=== PATIENT | female | born 1970 | race Caucasian/White ===

== ENCOUNTER 2019-03-15 15:19 | Inpatient (IN) ==
[2019-03-15 15:55] LABS: Basophils # 0.2 10*3/uL (0.0-0.2); Basophils % 0.9 % (0.0-0.8); Eosinophils # 0.4 10*3/uL (0.0-0.87); Eosinophils % 1.9 % (0.00-10.9); Hematocrit 43.8 VOL% (35.7-47.0); Hemoglobin 13.9 GM/DL (12.0-16.0); Immature Granulocytes % 0.6 %; Immature Granulocytes Absolute 0.12 #; Lymphocytes # 2.6 10*3/uL (1.4-4.0); Lymphocytes % 13.9 % (21.3-54.2); Mean Corpuscular HGB Conc 31.7 GM/DL (32-36); Mean Corpuscular Volume 81.7 FL (87-102); Monocytes % 5.6 % (1.7-12.7); Neutrophils % 77.1 % (38.7-73.9); Platelet Count 385 T/CUMM (130-400); Red Blood Count 5.36 MC/CUMM (3.8-5.5); Red Cell Distribution Width 19.5 % (9.3-17.3)
[2019-03-15 16:22] LABS: Bilirubin,Total 0.4 MG/DL (0.2-1.0); Calcium 8.5 MG/DL (8.5-10.1); Osmolality,Calculated 264.2 MOS/KG (273-304); Total Protein 7.3 G/DL (6.4-8.3)
[2019-03-15] MEDS ORDERED: SODIUM CHLORIDE 0.9% 1,000 ML IV STA (16:45)
[2019-03-15] MEDS ORDERED: ONDANSETRON 4 MG/2 ML VIAL IV STA (16:45)
[2019-03-15 17:36] LABS: Bilirubin,Total 0.4 MG/DL (0.2-1.0); Calcium 8.1 MG/DL (8.5-10.1); Osmolality,Calculated 263.2 MOS/KG (273-304); Total Protein 7.4 G/DL (6.4-8.3)
[2019-03-15 19:27] LABS: Apearance,Urine CLEAR (Clear); Bacteria,Urine Few /HPF (Few); Bilirubin,Urine Negative (Negative); Blood, Urine Small mg/dL (Negative); Glucose,Urine (UA) Negative (Negative); Ketones,Urine Negative (Negative); Mucus,Urine Occasional /LPF (Occasional); Nitrite,Urine Negative (Negative); Protein,Urine Negative; RBC,Urine <1 /HPF (0-4); Squamous Epithelial Cell,Urine Occasional /HPF (0-10); Urine Color Straw (Yellow); Urine Specific Gravity 1.005 (1.001-1.035); Urine Urobilinogen < 2.0 EU/DL (0.2-1.0); WBC,Urine <1 /HPF (0-6)
[2019-03-15] MEDS ORDERED: ONDANSETRON 4 MG/2 ML VIAL IV PRN (19:28)
[2019-03-15] MEDS: SODIUM CHLORIDE 0.9% 1,000 ML IV SCH (22:01)
[2019-03-15] MEDS: SULFAMETHOX/TRIMETHOPRIM 800-160 MG TABLET PO SCH (22:01)
[2019-03-15] MEDS: CYCLOBENZAPRINE 10 MG TABLET PO SCH (22:01)
[2019-03-15] MEDS: HEPARIN 5,000 UNIT/1 ML VIAL SUBCUT SCH (22:01)
[2019-03-15] MEDS: PREGABALIN 50 MG CAPSULE PO SCH (22:01)
[2019-03-16 05:01] LABS: Basophils # 0.1 10*3/uL (0.0-0.2); Basophils % 1.1 % (0.0-0.8); Eosinophils # 0.8 10*3/uL (0.0-0.87); Hematocrit 36.4 VOL% (35.7-47.0); Hemoglobin 11.6 GM/DL (12.0-16.0); Immature Granulocytes % 0.2 %; Immature Granulocytes Absolute 0.02 #; Lymphocytes # 3.2 10*3/uL (1.4-4.0); Lymphocytes % 29.2 % (21.3-54.2); Mean Corpuscular HGB Conc 31.9 GM/DL (32-36); Mean Corpuscular Volume 80.9 FL (87-102); Mean Platelet Volume 10.4 FL (9.6-12.0); Monocytes % 7.5 % (1.7-12.7); Platelet Count 312 T/CUMM (130-400); Red Cell Distribution Width 18.6 % (9.3-17.3); White Blood Count 10.9 T/CUMM (4-12)
[2019-03-16 05:29] LABS: Calcium 7.3 MG/DL (8.5-10.1)
[2019-03-16] MEDS: LEVOTHYROXINE 112 MCG TABLET PO SCH (05:41)
[2019-03-16] MEDS: SODIUM CHLORIDE 0.9% 1,000 ML IV SCH ×3 (05:41→21:21)
[2019-03-16] MEDS: HEPARIN 5,000 UNIT/1 ML VIAL SUBCUT SCH ×3 (05:41→21:23)
[2019-03-16] MEDS: DULoxetine 30 MG CAPSULE PO SCH (10:09)
[2019-03-16] MEDS: CYANOCOBALAMIN 500 MCG TABLET PO SCH (10:10)
[2019-03-16] MEDS: PREGABALIN 50 MG CAPSULE PO SCH ×3 (10:10→21:21)
[2019-03-16] MEDS: CALCIUM (CARBONATE)/VITAMIN D 500 MG-200 UNIT TABLET PO SCH ×2 (10:10→21:20)
[2019-03-16] MEDS: SULFAMETHOX/TRIMETHOPRIM 800-160 MG TABLET PO SCH ×2 (10:10→21:20)
[2019-03-16] MEDS: MAGNESIUM GLUCONATE 500 MG TABLET PO SCH (10:10)
[2019-03-16] MEDS: CYCLOBENZAPRINE 10 MG TABLET PO SCH ×2 (10:11→21:20)
[2019-03-16] MEDS: ESTRADIOL 1 MG TABLET PO SCH (10:11)
[2019-03-16] MEDS: PANTOPRAZOLE 40 MG TABLET PO SCH (10:11)
[2019-03-16] MEDS: POTASSIUM CHLORIDE 20 MEQ TABLET PO PRN ×3 (10:45→17:15)
[2019-03-16 11:12] LABS: Barbiturates Screen,Urine Negative (Negative); Benzodiazepines Screen,Urine Negative (Negative); Cannabinoid Screen,Urine Negative (Negative); Opiate Screen,Urine Positive (Negative); Phencyclidine Screen,Urine Negative (Negative)
[2019-03-17 04:34] LABS: Basophils # 0.1 10*3/uL (0.0-0.2); Basophils % 1.1 % (0.0-0.8); Eosinophils # 0.5 10*3/uL (0.0-0.87); Eosinophils % 7.1 % (0.00-10.9); Hematocrit 32.3 VOL% (35.7-47.0); Hemoglobin 10.2 GM/DL (12.0-16.0); Immature Granulocytes % 0.1 %; Immature Granulocytes Absolute 0.01 #; Lymphocytes # 2.7 10*3/uL (1.4-4.0); Lymphocytes % 36.7 % (21.3-54.2); Mean Corpuscular HGB Conc 31.6 GM/DL (32-36); Mean Corpuscular Volume 81.4 FL (87-102); Mean Platelet Volume 10.3 FL (9.6-12.0); Platelet Count 268 T/CUMM (130-400); Red Blood Count 3.97 MC/CUMM (3.8-5.5); Red Cell Distribution Width 18.8 % (9.3-17.3); White Blood Count 7.5 T/CUMM (4-12)
[2019-03-17] MEDS ORDERED: SODIUM CHLORIDE 0.9% 500 ML IV ONE (05:11)
[2019-03-17 05:14] LABS: Albumin 2.1 G/DL (3.4-5.0); Bilirubin,Total 1.2 MG/DL (0.2-1.0); Osmolality,Calculated 277.8 MOS/KG (273-304)
[2019-03-17] MEDS: SODIUM CHLORIDE 0.9% 1,000 ML IV SCH ×3 (05:36→22:55)
[2019-03-17] MEDS: LEVOTHYROXINE 112 MCG TABLET PO SCH (05:39)
[2019-03-17] MEDS: HEPARIN 5,000 UNIT/1 ML VIAL SUBCUT SCH ×3 (06:37→21:44)
[2019-03-17] MEDS: DULoxetine 30 MG CAPSULE PO SCH (09:54)
[2019-03-17] MEDS: MAGNESIUM GLUCONATE 500 MG TABLET PO SCH (09:54)
[2019-03-17] MEDS: PREGABALIN 50 MG CAPSULE PO SCH ×3 (09:55→21:42)
[2019-03-17] MEDS: SULFAMETHOX/TRIMETHOPRIM 800-160 MG TABLET PO SCH ×2 (09:55→22:56)
[2019-03-17] MEDS: CYANOCOBALAMIN 500 MCG TABLET PO SCH (09:55)
[2019-03-17] MEDS: POTASSIUM CHLORIDE 20 MEQ TABLET PO SCH (09:55)
[2019-03-17] MEDS: PANTOPRAZOLE 40 MG TABLET PO SCH (09:55)
[2019-03-17] MEDS: CALCIUM (CARBONATE)/VITAMIN D 500 MG-200 UNIT TABLET PO SCH ×2 (09:55→21:42)
[2019-03-17] MEDS: ESTRADIOL 1 MG TABLET PO SCH (09:56)
[2019-03-17] MEDS: dimenhyDRINATE 50 MG TABLET PO SCH (10:22)
[2019-03-17] MEDS: MOMETASONE 50 MCG NASAL SPRAY 17 GM BOTTLE BOTH NARES SCH (10:22)
[2019-03-17] MEDS: CYCLOBENZAPRINE 10 MG TABLET PO SCH ×2 (10:22→22:12)
[2019-03-17] MEDS: DIAZEPAM 5 MG TABLET PO PRN (22:56)
[2019-03-18 04:42] LABS: Basophils # 0.1 10*3/uL (0.0-0.2); Basophils % 1.1 % (0.0-0.8); Eosinophils # 0.7 10*3/uL (0.0-0.87); Eosinophils % 7.6 % (0.00-10.9); Hematocrit 30.7 VOL% (35.7-47.0); Hemoglobin 9.7 GM/DL (12.0-16.0); Immature Granulocytes % 0.1 %; Immature Granulocytes Absolute 0.01 #; Lymphocytes # 3.2 10*3/uL (1.4-4.0); Lymphocytes % 37.6 % (21.3-54.2); Mean Corpuscular HGB Conc 31.6 GM/DL (32-36); Mean Corpuscular Volume 82.1 FL (87-102); Mean Platelet Volume 10.4 FL (9.6-12.0); Monocytes % 7.5 % (1.7-12.7); Neutrophils % 46.1 % (38.7-73.9); Platelet Count 280 T/CUMM (130-400); Red Blood Count 3.74 MC/CUMM (3.8-5.5); Red Cell Distribution Width 18.8 % (9.3-17.3); White Blood Count 8.5 T/CUMM (4-12)
[2019-03-18 05:09] LABS: Bilirubin,Total 0.4 MG/DL (0.2-1.0); Calcium 7.4 MG/DL (8.5-10.1); Osmolality,Calculated 284.3 MOS/KG (273-304); Total Protein 4.8 G/DL (6.4-8.3)
[2019-03-18] MEDS: HEPARIN 5,000 UNIT/1 ML VIAL SUBCUT SCH ×3 (06:58→21:31)
[2019-03-18] MEDS: SODIUM CHLORIDE 0.9% 1,000 ML IV SCH ×2 (06:58→21:28)
[2019-03-18] MEDS: LEVOTHYROXINE 112 MCG TABLET PO SCH (06:59)
[2019-03-18] MEDS: POTASSIUM CHLORIDE 20 MEQ TABLET PO SCH (08:44)
[2019-03-18] MEDS: CALCIUM (CARBONATE)/VITAMIN D 500 MG-200 UNIT TABLET PO SCH ×2 (08:44→21:31)
[2019-03-18] MEDS: MAGNESIUM GLUCONATE 500 MG TABLET PO SCH (08:44)
[2019-03-18] MEDS: PREGABALIN 50 MG CAPSULE PO SCH ×3 (08:44→21:31)
[2019-03-18] MEDS: DULoxetine 30 MG CAPSULE PO SCH (08:44)
[2019-03-18] MEDS: CYANOCOBALAMIN 500 MCG TABLET PO SCH (08:45)
[2019-03-18] MEDS: PANTOPRAZOLE 40 MG TABLET PO SCH (08:46)
[2019-03-18] MEDS: CYCLOBENZAPRINE 10 MG TABLET PO SCH ×2 (08:46→21:31)
[2019-03-18] MEDS ORDERED: MAGNESIUM SULF RIDER 2 GM in PREMIX 1 EACH IV ONE (08:59)
[2019-03-18] MEDS ORDERED: ERGOCALCIFEROL 50,000 UNIT CAPSULE PO SCH (09:00)
[2019-03-18] MEDS: ESTRADIOL 1 MG TABLET PO SCH (09:06)
[2019-03-18] MEDS: POTASSIUM CHLORIDE 20 MEQ TABLET PO PRN ×3 (09:07→14:01)
[2019-03-18] MEDS: dimenhyDRINATE 50 MG TABLET PO SCH (09:07)
[2019-03-18] MEDS: MOMETASONE 50 MCG NASAL SPRAY 17 GM BOTTLE BOTH NARES SCH (09:07)
[2019-03-18] MEDS: [UNRECOGNIZED DRUG - OTHER] PO SCH (21:30)
[2019-03-19] MEDS: DIAZEPAM 5 MG TABLET PO PRN (01:51)
[2019-03-19] MEDS: HEPARIN 5,000 UNIT/1 ML VIAL SUBCUT SCH ×2 (06:48→14:20)
[2019-03-19] MEDS: LEVOTHYROXINE 112 MCG TABLET PO SCH (07:04)
[2019-03-19] MEDS: [UNRECOGNIZED DRUG - OTHER] PO SCH (08:47)
[2019-03-19] MEDS: dimenhyDRINATE 50 MG TABLET PO SCH (08:47)
[2019-03-19] MEDS: ESTRADIOL 1 MG TABLET PO SCH (08:48)
[2019-03-19] MEDS: PREGABALIN 50 MG CAPSULE PO SCH (08:48)
[2019-03-19] MEDS: POTASSIUM CHLORIDE 20 MEQ TABLET PO SCH (08:48)
[2019-03-19] MEDS: DULoxetine 30 MG CAPSULE PO SCH (08:48)
[2019-03-19] MEDS: CYCLOBENZAPRINE 10 MG TABLET PO SCH (08:48)
[2019-03-19] MEDS: MAGNESIUM GLUCONATE 500 MG TABLET PO SCH (08:48)
[2019-03-19] MEDS: PANTOPRAZOLE 40 MG TABLET PO SCH (08:48)
[2019-03-19] MEDS: CYANOCOBALAMIN 500 MCG TABLET PO SCH (08:48)
[2019-03-19] MEDS: CALCIUM (CARBONATE)/VITAMIN D 500 MG-200 UNIT TABLET PO SCH (08:48)
[2019-03-19] MEDS: MOMETASONE 50 MCG NASAL SPRAY 17 GM BOTTLE BOTH NARES SCH (09:01)
[2019-03-19 12:27] VITALS: BP 111/66
[2019-03-19] MEDS: SODIUM CHLORIDE 0.9% 1,000 ML IV SCH (12:53)
== END 2019-03-19 14:30 | disposition home or self-care (01) | DRG 683 ==
LOC: N.ED 15:19 → N.EDINP 15:19 → SUATTDRO 19:28 → N.4E 20:13
PROVIDERS: ADMIT Internal Medicine; ATTEND Internal Medicine

== ENCOUNTER 2019-04-06 20:47 | Inpatient (IN) ==
[2019-04-06] MEDS ORDERED: LACTATED RINGERS 1,000 ML IV ONE (22:13)
[2019-04-06 22:53] LABS: Basophils # 0.1 10*3/uL (0.0-0.2); Basophils % 0.4 % (0.0-0.8); Hematocrit 36.9 VOL% (35.7-47.0); Immature Granulocytes % 11.5 %; Immature Granulocytes Absolute 3.82 #; Lymphocytes # 0.7 10*3/uL (1.4-4.0); Lymphocytes % 2.1 % (21.3-54.2); Mean Corpuscular HGB Conc 32.5 GM/DL (32-36); Mean Corpuscular Volume 80.7 FL (87-102); Mean Platelet Volume 11.5 FL (9.6-12.0); Platelet Count 383 T/CUMM (130-400); Red Blood Count 4.57 MC/CUMM (3.8-5.5); Red Cell Distribution Width 18.8 % (9.3-17.3); White Blood Count 33.2 T/CUMM (4-12)
[2019-04-06] MEDS ORDERED: LACTATED RINGERS 2,000 ML IV ONE (23:09)
[2019-04-06 23:15] LABS: Band Neutrophils 16 % (0-10); Lymphocytes 5 % (20-55); Segmented Neutrophils 78 % (50-85); Total Cells Counted 100
[2019-04-06] MEDS ORDERED: LEVOFLOXACIN INJ 500 MG in PREMIX 1 EACH IV STA (23:15)
[2019-04-06 23:17] LABS: Anisocytosis 1+; Platelet Estimate Adequate; Poikilocytosis 1+; Polychromasia Slight
[2019-04-07 00:54] LABS: Apearance,Urine CLOUDY (Clear); Bacteria,Urine Moderate /HPF (Few); Bilirubin,Urine Negative (Negative); Blood, Urine Small mg/dL (Negative); Glucose,Urine (UA) Negative (Negative); Ketones,Urine Negative (Negative); Nitrite,Urine Negative (Negative); Protein,Urine Negative; RBC,Urine 1 /HPF (0-4); Squamous Epithelial Cell,Urine Occasional /HPF (0-10); Urine Color Yellow (Yellow); Urine Specific Gravity 1.009 (1.001-1.035); Urine Urobilinogen < 2.0 EU/DL (0.2-1.0); WBC,Urine 2 /HPF (0-6)
[2019-04-07 00:56] LABS: Blood Urea Nitrogen 45 MG/DL (7-18); Calcium 7.1 MG/DL (8.5-10.1); Estimated Glom Filtration Rate 13 ML/MIN; Glucose 90 MG/DL (74-106); Osmolality,Calculated 284.8 MOS/KG (273-304)
[2019-04-07] MEDS ORDERED: POTASSIUM CHLORIDE 20 MEQ TABLET PO STA (00:59)
[2019-04-07] MEDS ORDERED: POTASSIUM CHLORIDE 20 MEQ TABLET PO ONE (01:04)
[2019-04-07] MEDS ORDERED: VANCOMYCIN (NICU) 1,000 MG in SYRINGE 1 EACH IV SCH (01:30)
[2019-04-07] MEDS ORDERED: VANCOMYCIN INJ 1,000 MG in SODIUM CHLORIDE 0.9% 250 ML IV STA (01:54)
[2019-04-07] MEDS ORDERED: VANCOMYCIN INJ 1,000 MG in SODIUM CHLORIDE 0.9% 250 ML IV PRN (02:29)
[2019-04-07] MEDS ORDERED: ONDANSETRON 4 MG/2 ML VIAL IV PRN (02:55)
[2019-04-07] MEDS ORDERED: SODIUM CHLORIDE 0.9% 1,000 ML IV SCH (03:00)
[2019-04-07] MEDS ORDERED: SODIUM CHLORIDE 0.9% IV ONE (03:30)
[2019-04-07] MEDS ORDERED: AZTREONAM 1,000 MG in SYRINGE 1 EACH IV ONE ×2 (03:30)
[2019-04-07] MEDS ORDERED: MAGNESIUM SULF IV ONE (03:30)
[2019-04-07] MEDS ORDERED: AZTREONAM 1,000 MG in SYRINGE 1 EACH IV SCH (03:30)
[2019-04-07] MEDS ORDERED: POTASSIUM CHLORIDE IV ONE (03:30)
[2019-04-07] MEDS ORDERED: INFLUENZA VIRUS VACCINE 0.5 ML SYRINGE IM ONE (04:46)
[2019-04-07 04:54] LABS: Basophils # 0.1 10*3/uL (0.0-0.2); Basophils % 0.4 % (0.0-0.8); Hematocrit 34.5 VOL% (35.7-47.0); Hemoglobin 11.3 GM/DL (12.0-16.0); Immature Granulocytes % 8.2 %; Immature Granulocytes Absolute 2.56 #; Lymphocytes # 1.3 10*3/uL (1.4-4.0); Mean Corpuscular HGB Conc 32.8 GM/DL (32-36); Mean Corpuscular Volume 79.3 FL (87-102); Mean Platelet Volume 11.4 FL (9.6-12.0); Monocytes % 2.5 % (1.7-12.7); Neutrophils % 84.9 % (38.7-73.9); Platelet Count 312 T/CUMM (130-400); Red Blood Count 4.35 MC/CUMM (3.8-5.5); Red Cell Distribution Width 18.6 % (9.3-17.3); White Blood Count 31.1 T/CUMM (4-12)
[2019-04-07 05:15] LABS: Bilirubin,Total 1.1 MG/DL (0.2-1.0); Calcium 7.1 MG/DL (8.5-10.1); Osmolality,Calculated 282.7 MOS/KG (273-304); Total Protein 5.5 G/DL (6.4-8.3)
[2019-04-07 05:16] LABS: Band Neutrophils 5 % (0-10); Hypochromasia 1+; Lymphocytes 1 % (20-55); Segmented Neutrophils 89 % (50-85); Total Cells Counted 100
[2019-04-07 05:17] LABS: Microcytosis 1+; Platelet Estimate Normal; Polychromasia Slight
[2019-04-07 05:30] LABS: Troponin I < 0.015 NG/ML (0.00-0.045)
[2019-04-07] MEDS: LEVOTHYROXINE 112 MCG TABLET PO SCH (06:30)
[2019-04-07] MEDS: CYANOCOBALAMIN 500 MCG TABLET PO SCH (08:52)
[2019-04-07] MEDS: ESTRADIOL 1 MG TABLET PO SCH (08:52)
[2019-04-07] MEDS: [UNRECOGNIZED DRUG - OTHER] PO SCH ×2 (08:52→21:28)
[2019-04-07 09:49] LABS: Troponin I 0.029 NG/ML (0.00-0.045)
[2019-04-07] MEDS: AZTREONAM 500 MG in SYRINGE 1 EACH IV SCH ×3 (12:20→21:43)
[2019-04-07] MEDS ORDERED: DIAZEPAM 5 MG TABLET PO PRN (13:51)
[2019-04-07] MEDS ORDERED: ERGOCALCIFEROL 50,000 UNIT CAPSULE PO SCH (14:00)
[2019-04-07] MEDS ORDERED: MAGNESIUM SULF RIDER 4 GM in PREMIX 1 EACH IV PRN (14:03)
[2019-04-07] MEDS ORDERED: MAGNESIUM SULF RIDER 2 GM in PREMIX 1 EACH IV PRN (14:03)
[2019-04-07 15:31] LABS: Troponin I 0.123 NG/ML (0.00-0.045)
[2019-04-07] MEDS: FAMOTIDINE 20 MG TABLET PO SCH (16:46)
[2019-04-07] MEDS ORDERED: NYSTATIN 500,000 UNIT/5 ML UDCUP PO SCH ×2 (17:00)
[2019-04-07] MEDS: MAGIC MOUTHWASH PO SCH ×2 (18:07→21:52)
[2019-04-07] MEDS ORDERED: BENZONATATE 100 MG CAPSULE PO PRN (20:26)
[2019-04-07] MEDS: CALCIUM (CARBONATE)/VITAMIN D 500 MG-200 UNIT TABLET PO SCH (21:30)
[2019-04-07] MEDS: NYSTATIN 500,000 UNIT/5 ML UDCUP PO SCH (21:31)
[2019-04-07] MEDS: CYCLOBENZAPRINE 10 MG TABLET PO SCH (21:31)
[2019-04-08] MEDS: ALBUTEROL/IPRATROPIUM 3 ML NEB RESP TX PRN ×4 (04:00→23:33)
[2019-04-08] MEDS: AZTREONAM 500 MG in SYRINGE 1 EACH IV SCH ×4 (04:33→21:11)
[2019-04-08 05:29] LABS: Basophils # 0.1 10*3/uL (0.0-0.2); Basophils % 0.2 % (0.0-0.8); Eosinophils # 0.1 10*3/uL (0.0-0.87); Eosinophils % 0.4 % (0.00-10.9); Hematocrit 38.1 VOL% (35.7-47.0); Hemoglobin 12.6 GM/DL (12.0-16.0); Immature Granulocytes % 6.2 %; Immature Granulocytes Absolute 1.65 #; Lymphocytes # 1.7 10*3/uL (1.4-4.0); Lymphocytes % 6.4 % (21.3-54.2); Mean Corpuscular HGB Conc 33.1 GM/DL (32-36); Mean Corpuscular Volume 79.2 FL (87-102); Mean Platelet Volume 11.4 FL (9.6-12.0); Monocytes % 3.2 % (1.7-12.7); NRBC # 0.03 10*3/uL; Neutrophils % 83.6 % (38.7-73.9); Platelet Count 315 T/CUMM (130-400); Red Blood Count 4.81 MC/CUMM (3.8-5.5); Red Cell Distribution Width 19.1 % (9.3-17.3); White Blood Count 26.5 T/CUMM (4-12)
[2019-04-08 06:13] LABS: Band Neutrophils 7 % (0-10); Eosinophils 2 % (0-10); Lymphocytes 4 % (20-55); Segmented Neutrophils 84 % (50-85); Total Cells Counted 100
[2019-04-08 06:14] LABS: Anisocytosis 1+; Platelet Estimate Adequate; Poikilocytosis 1+
[2019-04-08 06:27] LABS: Albumin 1.6 G/DL (3.4-5.0); Bilirubin,Total 0.5 MG/DL (0.2-1.0); Total Protein 5.9 G/DL (6.4-8.3)
[2019-04-08] MEDS: LEVOTHYROXINE 112 MCG TABLET PO SCH (06:58)
[2019-04-08] MEDS: [UNRECOGNIZED DRUG - OTHER] PO SCH ×2 (08:36→21:14)
[2019-04-08] MEDS: NYSTATIN 500,000 UNIT/5 ML UDCUP PO SCH ×4 (08:37→21:12)
[2019-04-08] MEDS: CALCIUM (CARBONATE)/VITAMIN D 500 MG-200 UNIT TABLET PO SCH ×2 (08:37→21:12)
[2019-04-08] MEDS: MAGNESIUM GLUCONATE 500 MG TABLET PO SCH (08:37)
[2019-04-08] MEDS: DULoxetine 30 MG CAPSULE PO SCH (08:37)
[2019-04-08] MEDS: CYCLOBENZAPRINE 10 MG TABLET PO SCH ×2 (08:38→21:13)
[2019-04-08] MEDS: ESTRADIOL 1 MG TABLET PO SCH (08:38)
[2019-04-08] MEDS: FAMOTIDINE 20 MG TABLET PO SCH (08:38)
[2019-04-08] MEDS: dimenhyDRINATE 50 MG TABLET PO SCH (08:38)
[2019-04-08] MEDS: CYANOCOBALAMIN 500 MCG TABLET PO SCH (08:38)
[2019-04-08] MEDS: MOMETASONE 50 MCG NASAL SPRAY 17 GM BOTTLE BOTH NARES SCH (08:39)
[2019-04-08] MEDS: MAGIC MOUTHWASH PO SCH ×4 (08:41→21:12)
[2019-04-08] MEDS ORDERED: VANCOMYCIN INJ 1,000 MG in SODIUM CHLORIDE 0.9% 250 ML IV ONE (14:30)
[2019-04-09] MEDS: LEVOFLOXACIN INJ 250 MG in PREMIX 1 EACH IV SCH (01:33)
[2019-04-09] MEDS: AZTREONAM 500 MG in SYRINGE 1 EACH IV SCH ×4 (04:30→20:50)
[2019-04-09 05:39] LABS: Basophils # 0.1 10*3/uL (0.0-0.2); Basophils % 0.5 % (0.0-0.8); Eosinophils # 0.1 10*3/uL (0.0-0.87); Eosinophils % 0.4 % (0.00-10.9); Hematocrit 28.4 VOL% (35.7-47.0); Hemoglobin 9.5 GM/DL (12.0-16.0); Immature Granulocytes Absolute 0.23 #; Lymphocytes # 1.6 10*3/uL (1.4-4.0); Lymphocytes % 7.1 % (21.3-54.2); Mean Corpuscular HGB Conc 33.5 GM/DL (32-36); Mean Corpuscular Volume 77.4 FL (87-102); Mean Platelet Volume 11.3 FL (9.6-12.0); Monocytes % 5.5 % (1.7-12.7); NRBC # 0.02 10*3/uL; Neutrophils % 85.5 % (38.7-73.9); Platelet Count 274 T/CUMM (130-400); Red Blood Count 3.67 MC/CUMM (3.8-5.5); Red Cell Distribution Width 18.1 % (9.3-17.3); White Blood Count 22.4 T/CUMM (4-12)
[2019-04-09 06:06] LABS: Hypochromasia 1+; Lymphocytes 7 % (20-55); Microcytosis 1+; Segmented Neutrophils 89 % (50-85); Total Cells Counted 100
[2019-04-09 06:07] LABS: Anisocytosis 1+; Burr Cells Slight; Target Cells Slight
[2019-04-09 06:08] LABS: Albumin 1.6 G/DL (3.4-5.0); Bilirubin,Total 1.1 MG/DL (0.2-1.0); Calcium 8.1 MG/DL (8.5-10.1); Osmolality,Calculated 288.5 MOS/KG (273-304); Total Protein 5.1 G/DL (6.4-8.3)
[2019-04-09] MEDS: LEVOTHYROXINE 112 MCG TABLET PO SCH (06:16)
[2019-04-09] MEDS: CYANOCOBALAMIN 500 MCG TABLET PO SCH (09:48)
[2019-04-09] MEDS: CYCLOBENZAPRINE 10 MG TABLET PO SCH ×2 (09:48→20:21)
[2019-04-09] MEDS: FAMOTIDINE 20 MG TABLET PO SCH (09:48)
[2019-04-09] MEDS: CALCIUM (CARBONATE)/VITAMIN D 500 MG-200 UNIT TABLET PO SCH ×2 (09:48→20:21)
[2019-04-09] MEDS: dimenhyDRINATE 50 MG TABLET PO SCH (09:49)
[2019-04-09] MEDS: MAGNESIUM GLUCONATE 500 MG TABLET PO SCH (09:49)
[2019-04-09] MEDS: DULoxetine 30 MG CAPSULE PO SCH (09:49)
[2019-04-09] MEDS: MOMETASONE 50 MCG NASAL SPRAY 17 GM BOTTLE BOTH NARES SCH (09:49)
[2019-04-09] MEDS: ESTRADIOL 1 MG TABLET PO SCH (09:49)
[2019-04-09] MEDS: NYSTATIN 500,000 UNIT/5 ML UDCUP PO SCH ×4 (09:51→20:22)
[2019-04-09] MEDS: MAGIC MOUTHWASH PO SCH ×4 (09:51→20:31)
[2019-04-09] MEDS: [UNRECOGNIZED DRUG - OTHER] PO SCH ×2 (09:52→20:22)
[2019-04-09] MEDS: POTASSIUM CHLORIDE 20 MEQ TABLET PO PRN (20:21)
[2019-04-10] MEDS: AZTREONAM 500 MG in SYRINGE 1 EACH IV SCH ×4 (04:37→21:10)
[2019-04-10 05:57] LABS: Basophils # 0.1 10*3/uL (0.0-0.2); Basophils % 0.6 % (0.0-0.8); Eosinophils # 0.2 10*3/uL (0.0-0.87); Eosinophils % 1.2 % (0.00-10.9); Hematocrit 34.3 VOL% (35.7-47.0); Hemoglobin 10.9 GM/DL (12.0-16.0); Immature Granulocytes % 1.1 %; Immature Granulocytes Absolute 0.21 #; Lymphocytes # 1.4 10*3/uL (1.4-4.0); Lymphocytes % 7.1 % (21.3-54.2); Mean Corpuscular HGB Conc 31.8 GM/DL (32-36); Mean Corpuscular Volume 81.7 FL (87-102); Mean Platelet Volume 11.7 FL (9.6-12.0); NRBC # 0.03 10*3/uL; Platelet Count 225 T/CUMM (130-400); White Blood Count 19.9 T/CUMM (4-12)
[2019-04-10] MEDS: LEVOTHYROXINE 112 MCG TABLET PO SCH (06:03)
[2019-04-10 06:05] LABS: Alanine Aminotransferase < 6 U/L (13-56); Albumin 1.5 G/DL (3.4-5.0); Alkaline Phosphatase 173 U/L (45-117); Aspartate Amino Transferase 27 U/L (0-37); Blood Urea Nitrogen 52 MG/DL (7-18); Calcium 8.9 MG/DL (8.5-10.1); Estimated Glom Filtration Rate 11 ML/MIN; Glucose 94 MG/DL (74-106); Osmolality,Calculated 299.8 MOS/KG (273-304); Total Protein 5.7 G/DL (6.4-8.3)
[2019-04-10 06:31] LABS: Platelet Estimate Normal
[2019-04-10 06:32] LABS: Polychromasia Few
[2019-04-10] MEDS: CYANOCOBALAMIN 500 MCG TABLET PO SCH (09:07)
[2019-04-10] MEDS: ESTRADIOL 1 MG TABLET PO SCH (09:07)
[2019-04-10] MEDS: CYCLOBENZAPRINE 10 MG TABLET PO SCH ×2 (09:07→21:10)
[2019-04-10] MEDS: MAGNESIUM GLUCONATE 500 MG TABLET PO SCH (09:08)
[2019-04-10] MEDS: FAMOTIDINE 20 MG TABLET PO SCH (09:08)
[2019-04-10] MEDS: CALCIUM (CARBONATE)/VITAMIN D 500 MG-200 UNIT TABLET PO SCH ×2 (09:08→21:10)
[2019-04-10] MEDS: DULoxetine 30 MG CAPSULE PO SCH (09:08)
[2019-04-10] MEDS: dimenhyDRINATE 50 MG TABLET PO SCH (09:08)
[2019-04-10] MEDS: POTASSIUM CHLORIDE 20 MEQ TABLET PO PRN ×2 (09:09→23:55)
[2019-04-10] MEDS: NYSTATIN 500,000 UNIT/5 ML UDCUP PO SCH ×4 (09:09→21:10)
[2019-04-10] MEDS: MAGIC MOUTHWASH PO SCH ×4 (09:09→21:12)
[2019-04-10] MEDS: [UNRECOGNIZED DRUG - OTHER] PO SCH ×2 (09:09→21:12)
[2019-04-10] MEDS: MOMETASONE 50 MCG NASAL SPRAY 17 GM BOTTLE BOTH NARES SCH (09:12)
[2019-04-10] MEDS ORDERED: VANCOMYCIN INJ 1,000 MG in SODIUM CHLORIDE 0.9% 250 ML IV ONE (12:00)
[2019-04-10] MEDS: POTASSIUM CHLORIDE RIDER 10 MEQ in PREMIX 1 EACH IV PRN ×3 (16:42→23:02)
[2019-04-11] MEDS: AZTREONAM 500 MG in SYRINGE 1 EACH IV SCH ×4 (02:30→21:13)
[2019-04-11] MEDS: LEVOFLOXACIN INJ 250 MG in PREMIX 1 EACH IV SCH (02:30)
[2019-04-11 05:16] LABS: Basophils # 0.1 10*3/uL (0.0-0.2); Basophils % 0.6 % (0.0-0.8); Eosinophils # 0.3 10*3/uL (0.0-0.87); Hematocrit 33.5 VOL% (35.7-47.0); Immature Granulocytes % 1.7 %; Immature Granulocytes Absolute 0.24 #; Lymphocytes # 1.9 10*3/uL (1.4-4.0); Lymphocytes % 13.6 % (21.3-54.2); Mean Corpuscular HGB Conc 32.8 GM/DL (32-36); Mean Corpuscular Volume 78.3 FL (87-102); Mean Platelet Volume 11.8 FL (9.6-12.0); Monocytes % 5.7 % (1.7-12.7); NRBC # 0.03 10*3/uL; Neutrophils % 76.4 % (38.7-73.9); Platelet Count 290 T/CUMM (130-400); Red Blood Count 4.28 MC/CUMM (3.8-5.5); Red Cell Distribution Width 18.5 % (9.3-17.3); White Blood Count 13.9 T/CUMM (4-12)
[2019-04-11 06:06] LABS: Alanine Aminotransferase < 6 U/L (13-56); Albumin 1.5 G/DL (3.4-5.0); Alkaline Phosphatase 173 U/L (45-117); Aspartate Amino Transferase 19 U/L (0-37); Blood Urea Nitrogen 60 MG/DL (7-18); Calcium 8.5 MG/DL (8.5-10.1); Estimated Glom Filtration Rate 11 ML/MIN; Glucose 94 MG/DL (74-106); Total Protein 4.6 G/DL (6.4-8.3)
[2019-04-11] MEDS: LEVOTHYROXINE 112 MCG TABLET PO SCH (06:17)
[2019-04-11] MEDS: MOMETASONE 50 MCG NASAL SPRAY 17 GM BOTTLE BOTH NARES SCH (10:32)
[2019-04-11] MEDS: DEXTROSE 5% 1,000 ML IV SCH ×2 (10:32→21:13)
[2019-04-11] MEDS: MAGNESIUM GLUCONATE 500 MG TABLET PO SCH (10:35)
[2019-04-11] MEDS: [UNRECOGNIZED DRUG - OTHER] PO SCH ×3 (10:36→21:31)
[2019-04-11] MEDS: ESTRADIOL 1 MG TABLET PO SCH (10:36)
[2019-04-11] MEDS: CYCLOBENZAPRINE 10 MG TABLET PO SCH ×3 (10:36→21:31)
[2019-04-11] MEDS: DULoxetine 30 MG CAPSULE PO SCH (10:36)
[2019-04-11] MEDS: CALCIUM (CARBONATE)/VITAMIN D 500 MG-200 UNIT TABLET PO SCH ×3 (10:37→21:31)
[2019-04-11] MEDS: NYSTATIN 500,000 UNIT/5 ML UDCUP PO SCH ×4 (10:37→21:25)
[2019-04-11] MEDS: CYANOCOBALAMIN 500 MCG TABLET PO SCH (10:37)
[2019-04-11] MEDS: FAMOTIDINE 20 MG TABLET PO SCH (10:37)
[2019-04-11] MEDS: MAGIC MOUTHWASH PO SCH ×4 (10:37→21:25)
[2019-04-11] MEDS: dimenhyDRINATE 50 MG TABLET PO SCH (11:15)
[2019-04-12] MEDS: AZTREONAM 500 MG in SYRINGE 1 EACH IV SCH ×2 (02:41→08:50)
[2019-04-12 05:24] LABS: Basophils % 0.3 % (0.0-0.8); Eosinophils % 8.7 % (0.00-10.9); Hematocrit 31.5 VOL% (35.7-47.0); Hemoglobin 10.3 GM/DL (12.0-16.0); Immature Granulocytes % 1.3 %; Immature Granulocytes Absolute 0.15 #; Lymphocytes # 2.1 10*3/uL (1.4-4.0); Lymphocytes % 18.4 % (21.3-54.2); Mean Corpuscular HGB Conc 32.7 GM/DL (32-36); Mean Corpuscular Volume 78.4 FL (87-102); Mean Platelet Volume 11.2 FL (9.6-12.0); Monocytes % 4.7 % (1.7-12.7); Neutrophils % 66.6 % (38.7-73.9); Platelet Count 267 T/CUMM (130-400); Red Blood Count 4.02 MC/CUMM (3.8-5.5); Red Cell Distribution Width 18.6 % (9.3-17.3); White Blood Count 11.3 T/CUMM (4-12)
[2019-04-12 05:55] LABS: Calcium 8.7 MG/DL (8.5-10.1); Osmolality,Calculated 296.4 MOS/KG (273-304)
[2019-04-12] MEDS: LEVOTHYROXINE 112 MCG TABLET PO SCH (06:06)
[2019-04-12] MEDS ORDERED: VANCOMYCIN INJ 1,000 MG in SODIUM CHLORIDE 0.9% 250 ML IV ONE (08:00)
[2019-04-12] MEDS: ESTRADIOL 1 MG TABLET PO SCH (08:49)
[2019-04-12] MEDS: DULoxetine 30 MG CAPSULE PO SCH (08:49)
[2019-04-12] MEDS: CYCLOBENZAPRINE 10 MG TABLET PO SCH ×2 (08:49→22:40)
[2019-04-12] MEDS: DEXTROSE 5% 1,000 ML IV SCH ×3 (08:49→20:45)
[2019-04-12] MEDS: dimenhyDRINATE 50 MG TABLET PO SCH (08:49)
[2019-04-12] MEDS: CYANOCOBALAMIN 500 MCG TABLET PO SCH (08:50)
[2019-04-12] MEDS: NYSTATIN 500,000 UNIT/5 ML UDCUP PO SCH ×4 (08:50→22:40)
[2019-04-12] MEDS: MAGNESIUM GLUCONATE 500 MG TABLET PO SCH (08:50)
[2019-04-12] MEDS: MOMETASONE 50 MCG NASAL SPRAY 17 GM BOTTLE BOTH NARES SCH (08:50)
[2019-04-12] MEDS: [UNRECOGNIZED DRUG - OTHER] PO SCH ×2 (08:50→22:40)
[2019-04-12] MEDS: MAGIC MOUTHWASH PO SCH ×4 (08:50→22:40)
[2019-04-12] MEDS: CALCIUM (CARBONATE)/VITAMIN D 500 MG-200 UNIT TABLET PO SCH ×2 (08:50→22:40)
[2019-04-12] MEDS: FAMOTIDINE 20 MG TABLET PO SCH (08:50)
[2019-04-12] MEDS: POTASSIUM CHLORIDE RIDER 10 MEQ in PREMIX 1 EACH IV PRN ×4 (10:34→16:42)
[2019-04-13] MEDS: DEXTROSE 5% 1,000 ML IV SCH ×2 (02:01→09:14)
[2019-04-13] MEDS: LEVOFLOXACIN INJ 250 MG in PREMIX 1 EACH IV SCH (02:26)
[2019-04-13 04:58] LABS: Calcium 8.5 MG/DL (8.5-10.1)
[2019-04-13] MEDS: POTASSIUM CHLORIDE RIDER 10 MEQ in PREMIX 1 EACH IV PRN ×2 (05:36→09:14)
[2019-04-13] MEDS: LEVOTHYROXINE 112 MCG TABLET PO SCH (06:10)
[2019-04-13] MEDS: CYANOCOBALAMIN 500 MCG TABLET PO SCH (09:23)
[2019-04-13] MEDS: FAMOTIDINE 20 MG TABLET PO SCH (09:23)
[2019-04-13] MEDS: CYCLOBENZAPRINE 10 MG TABLET PO SCH (09:23)
[2019-04-13] MEDS: CALCIUM (CARBONATE)/VITAMIN D 500 MG-200 UNIT TABLET PO SCH (09:25)
[2019-04-13] MEDS: MAGNESIUM GLUCONATE 500 MG TABLET PO SCH (09:26)
[2019-04-13] MEDS: dimenhyDRINATE 50 MG TABLET PO SCH (09:26)
[2019-04-13] MEDS: ESTRADIOL 1 MG TABLET PO SCH (09:26)
[2019-04-13] MEDS: DULoxetine 30 MG CAPSULE PO SCH (09:26)
[2019-04-13] MEDS: NYSTATIN 500,000 UNIT/5 ML UDCUP PO SCH ×2 (09:27→13:46)
[2019-04-13] MEDS: MAGIC MOUTHWASH PO SCH ×2 (09:33→13:46)
[2019-04-13] MEDS: MOMETASONE 50 MCG NASAL SPRAY 17 GM BOTTLE BOTH NARES SCH (09:36)
[2019-04-13] MEDS: [UNRECOGNIZED DRUG - OTHER] PO SCH (10:15)
[2019-04-13] MEDS ORDERED: POTASSIUM CHLORIDE 20 MEQ TABLET PO ONE ×2 (11:00→13:00)
[2019-04-13] MEDS ORDERED: LIDOCAINE 2% VISCOUS 100 ML BOTTLE SWISH/SPIT PRN (11:51)
[2019-04-13 16:27] VITALS: BP 113/75
== END 2019-04-13 17:17 | disposition home or self-care (01) | DRG 193 ==
LOC: N.ED 20:47 → SUATTDRO 04-07 01:45 → N.EDINP 04-07 01:45 → N.TELEN 04-07 02:10
PROVIDERS: ADMIT Internal Medicine Geriatric Medicine; ATTEND Internal Medicine

== ENCOUNTER 2020-10-30 14:52 | Inpatient (IN) ==
[2020-10-30 15:43] LABS: Basophils # 0.1 10*3/uL (0.0-0.2); Basophils % 0.6 % (0.0-0.8); Eosinophils # 0.2 10*3/uL (0.0-0.87); Eosinophils % 2.2 % (0.00-10.9); Immature Granulocytes % 0.7 %; Immature Granulocytes Absolute 0.06 #; Lymphocytes # 1.7 10*3/uL (1.4-4.0); Lymphocytes % 18.7 % (21.3-54.2); Mean Corpuscular HGB Conc 32.1 GM/DL (32-36); Mean Corpuscular Volume 63.9 FL (87-102); Mean Platelet Volume 8.8 FL (9.6-12.0); Monocytes % 6.8 % (1.7-12.7); Platelet Count 331 T/CUMM (130-400); Red Blood Count 4.38 MC/CUMM (3.8-5.5); Red Cell Distribution Width 19.1 % (9.3-17.3)
[2020-10-30 16:05] LABS: Albumin 3.1 G/DL (3.4-5.0); Bilirubin,Total 1.1 MG/DL (0.2-1.0); Osmolality,Calculated 228.2 MOS/KG (273-304); Total Protein 5.6 G/DL (6.4-8.2)
[2020-10-30 16:09] LABS: Potassium 2.3 MMOL/L (3.5-5.1)
[2020-10-30] MEDS ORDERED: POTASSIUM CHLORIDE 20 MEQ TABLET PO STA (16:17)
[2020-10-30] MEDS ORDERED: NICOTINE 21 MG/24 HR PATCH TRANSDERM PRN (16:52)
[2020-10-30] MEDS ORDERED: PROMETHAZINE 25 MG TABLET PO PRN (16:52)
[2020-10-30] MEDS ORDERED: guaiFENesin/DM ER 600-30 MG TABLET PO PRN (16:52)
[2020-10-30] MEDS ORDERED: GLUCAGON 1 MG VIAL IM PRN (16:52)
[2020-10-30] MEDS ORDERED: DEXTROSE 50% 25 GM/50 ML VIAL IV PRN (16:52)
[2020-10-30] MEDS ORDERED: ACETAMINOPHEN 325 MG TABLET PO PRN (16:52)
[2020-10-30] MEDS ORDERED: diphenhydrAMINE CAP 25 MG CAPSULE PO PRN (16:52)
[2020-10-30] MEDS ORDERED: ZALEPLON 5 MG CAPSULE PO PRN (16:52)
[2020-10-30] MEDS ORDERED: DOCUSATE SODIUM 100 MG CAPSULE PO PRN (16:52)
[2020-10-30] MEDS ORDERED: hydrALAZINE 20 MG/1 ML VIAL IV PRN (16:52)
[2020-10-30] MEDS ORDERED: MORPHINE 4 MG/1 ML VIAL IV PRN (16:52)
[2020-10-30] MEDS ORDERED: HYDROmorphone 2 MG/1 ML VIAL IV STA (17:04)
[2020-10-30] MEDS: ENOXAPARIN 40 MG/0.4 ML SYRINGE SUBCUT SCH (17:37)
[2020-10-30] MEDS: ONDANSETRON 4 MG/2 ML VIAL IV PRN (17:46)
[2020-10-30] MEDS ORDERED: SODIUM CHLORIDE 0.9% 1,000 ML IV STA (18:04)
[2020-10-30] MEDS ORDERED: CALCIUM GLUCONATE 2,000 MG in SODIUM CHLORIDE 0.9% 100 ML IV ONE (18:30)
[2020-10-30] MEDS ORDERED: SODIUM CHLOR 0.9% KCL 40 MEQ 40 MEQ/1,000 ML BAG IV SCH (19:00)
[2020-10-30] MEDS ORDERED: SODIUM CHLORIDE 3% INJ 500 ML IV SCH (20:00)
[2020-10-30] MEDS: POTASSIUM CHLORIDE 20 MEQ TABLET PO SCH (20:55)
[2020-10-30] MEDS: CALCIUM (CARBONATE)/VITAMIN D 500 MG-200 UNIT TABLET PO SCH (20:55)
[2020-10-30] MEDS: HYDROmorphone 2 MG/1 ML VIAL IV PRN (21:05)
[2020-10-30] MEDS: PREGABALIN 25 MG CAPSULE PO SCH (21:05)
[2020-10-30] MEDS: POTASSIUM CHLORIDE INJ 40 MEQ in SODIUM CHLORIDE 0.45% 1,000 ML IV SCH (21:05)
[2020-10-31 03:02] LABS: Basophils # 0.1 10*3/uL (0.0-0.2); Basophils % 0.5 % (0.0-0.8); Eosinophils # 0.4 10*3/uL (0.0-0.87); Eosinophils % 3.2 % (0.00-10.9); Hematocrit 27.1 VOL% (35.7-47.0); Immature Granulocytes % 0.5 %; Immature Granulocytes Absolute 0.06 #; Lymphocytes # 2.3 10*3/uL (1.4-4.0); Lymphocytes % 19.2 % (21.3-54.2); Mean Corpuscular HGB Conc 29.5 GM/DL (32-36); Mean Corpuscular Volume 66.7 FL (87-102); Mean Platelet Volume 8.7 FL (9.6-12.0); Monocytes % 6.7 % (1.7-12.7); Neutrophils % 69.9 % (38.7-73.9); Platelet Count 329 T/CUMM (130-400); Red Blood Count 4.06 MC/CUMM (3.8-5.5); Red Cell Distribution Width 19.2 % (9.3-17.3); White Blood Count 12.2 T/CUMM (4-12)
[2020-10-31 03:18] LABS: Calcium 6.7 MG/DL (8.5-10.1); Osmolality,Calculated 238.3 MOS/KG (273-304); Potassium 2.9 MMOL/L (3.5-5.1)
[2020-10-31] MEDS: LEVOTHYROXINE 100 MCG TABLET PO SCH (06:40)
[2020-10-31] MEDS ORDERED: ERGOCALCIFEROL 50,000 UNIT CAPSULE PO SCH (09:00)
[2020-10-31] MEDS: ESTRADIOL 1 MG TABLET PO SCH (09:16)
[2020-10-31] MEDS: CYANOCOBALAMIN 500 MCG TABLET PO SCH (09:16)
[2020-10-31] MEDS: CALCIUM (CARBONATE)/VITAMIN D 500 MG-200 UNIT TABLET PO SCH ×2 (09:17→21:18)
[2020-10-31] MEDS: allopurinoL 100 MG TABLET PO SCH (09:17)
[2020-10-31] MEDS: POTASSIUM CHLORIDE 20 MEQ TABLET PO SCH ×2 (09:17→21:18)
[2020-10-31] MEDS: MAGNESIUM OXIDE 400 MG TABLET PO SCH (09:18)
[2020-10-31] MEDS: PREGABALIN 25 MG CAPSULE PO SCH ×3 (09:18→21:19)
[2020-10-31] MEDS: PANTOPRAZOLE 40 MG TABLET PO SCH (09:24)
[2020-10-31] MEDS: HYDROmorphone 2 MG/1 ML VIAL IV PRN ×3 (09:45→22:42)
[2020-10-31] MEDS ORDERED: SODIUM CHLORIDE 0.65% NASAL SPRAY 45 ML BOTTLE BOTH NARES PRN (14:07)
[2020-10-31 14:41] LABS: Calcium 7.7 MG/DL (8.5-10.1); Osmolality,Calculated 258.9 MOS/KG (273-304); Potassium 3.8 MMOL/L (3.5-5.1)
[2020-10-31] MEDS: SODIUM CHLORIDE 0.9% 1,000 ML IV SCH (14:56)
[2020-10-31] MEDS: POTASSIUM CHLORIDE INJ 40 MEQ in SODIUM CHLORIDE 0.45% 1,000 ML IV SCH (15:15)
[2020-10-31] MEDS: ENOXAPARIN 40 MG/0.4 ML SYRINGE SUBCUT SCH (16:26)
[2020-10-31] MEDS: FAMOTIDINE 20 MG TABLET PO SCH (21:19)
[2020-10-31] MEDS: [UNRECOGNIZED DRUG - OTHER] PO SCH (21:21)
[2020-11-01] MEDS: SODIUM CHLORIDE 0.9% 1,000 ML IV SCH ×2 (01:27→12:39)
[2020-11-01] MEDS: HYDROmorphone 2 MG/1 ML VIAL IV PRN ×4 (04:26→23:22)
[2020-11-01] MEDS: LEVOTHYROXINE 100 MCG TABLET PO SCH (05:56)
[2020-11-01 07:03] LABS: Calcium 7.6 MG/DL (8.5-10.1); Osmolality,Calculated 268.2 MOS/KG (273-304)
[2020-11-01] MEDS: POTASSIUM CHLORIDE 20 MEQ TABLET PO SCH ×2 (09:39→21:20)
[2020-11-01] MEDS: ESTRADIOL 1 MG TABLET PO SCH (09:39)
[2020-11-01] MEDS: PANTOPRAZOLE 40 MG TABLET PO SCH (09:39)
[2020-11-01] MEDS: CYANOCOBALAMIN 500 MCG TABLET PO SCH (09:39)
[2020-11-01] MEDS: PREGABALIN 25 MG CAPSULE PO SCH ×3 (09:41→21:20)
[2020-11-01] MEDS: FAMOTIDINE 20 MG TABLET PO SCH ×2 (09:41→21:20)
[2020-11-01] MEDS: CALCIUM (CARBONATE)/VITAMIN D 500 MG-200 UNIT TABLET PO SCH ×2 (09:41→21:20)
[2020-11-01] MEDS: allopurinoL 100 MG TABLET PO SCH (09:41)
[2020-11-01] MEDS: MAGNESIUM OXIDE 400 MG TABLET PO SCH (09:41)
[2020-11-01] MEDS: [UNRECOGNIZED DRUG - OTHER] PO SCH (09:59)
[2020-11-01] MEDS: ENOXAPARIN 40 MG/0.4 ML SYRINGE SUBCUT SCH (17:46)
[2020-11-01] MEDS: VANCOMYCIN 50 MG/ML 60 ML/BOTTLE PO SCH (18:40)
[2020-11-02] MEDS: VANCOMYCIN 50 MG/ML 60 ML/BOTTLE PO SCH ×4 (01:09→17:13)
[2020-11-02] MEDS: SODIUM CHLORIDE 0.9% 1,000 ML IV SCH ×2 (03:51→07:21)
[2020-11-02 05:46] LABS: Calcium 8.2 MG/DL (8.5-10.1); Osmolality,Calculated 271.8 MOS/KG (273-304); Potassium 3.7 MMOL/L (3.5-5.1)
[2020-11-02] MEDS: CALCIUM (CARBONATE)/VITAMIN D 500 MG-200 UNIT TABLET PO SCH ×2 (08:57→22:41)
[2020-11-02] MEDS: MAGNESIUM OXIDE 400 MG TABLET PO SCH (08:57)
[2020-11-02] MEDS: allopurinoL 100 MG TABLET PO SCH (08:58)
[2020-11-02] MEDS: PANTOPRAZOLE 40 MG TABLET PO SCH (08:58)
[2020-11-02] MEDS: PREGABALIN 25 MG CAPSULE PO SCH ×3 (08:58→22:40)
[2020-11-02] MEDS: CYANOCOBALAMIN 500 MCG TABLET PO SCH (08:58)
[2020-11-02] MEDS: LEVOTHYROXINE 100 MCG TABLET PO SCH (08:58)
[2020-11-02] MEDS: POTASSIUM CHLORIDE 20 MEQ TABLET PO SCH ×2 (08:58→22:42)
[2020-11-02] MEDS: FAMOTIDINE 20 MG TABLET PO SCH ×2 (08:59→22:41)
[2020-11-02] MEDS: ESTRADIOL 1 MG TABLET PO SCH (08:59)
[2020-11-02] MEDS: HYDROmorphone 2 MG/1 ML VIAL IV PRN ×3 (11:37→22:49)
[2020-11-02] MEDS ORDERED: FUROSEMIDE 20 MG/2 ML VIAL IV ONE (13:49)
[2020-11-02] MEDS: ENOXAPARIN 40 MG/0.4 ML SYRINGE SUBCUT SCH (17:13)
[2020-11-02] MEDS: ONDANSETRON 4 MG/2 ML VIAL IV PRN (22:48)
[2020-11-03] MEDS: VANCOMYCIN 50 MG/ML 60 ML/BOTTLE PO SCH ×3 (01:58→11:18)
[2020-11-03 05:49] LABS: Basophils # 0.1 10*3/uL (0.0-0.2); Basophils % 0.5 % (0.0-0.8); Eosinophils # 0.6 10*3/uL (0.0-0.87); Eosinophils % 5.6 % (0.00-10.9); Hematocrit 27.1 VOL% (35.7-47.0); Hemoglobin 7.8 GM/DL (12.0-16.0); Immature Granulocytes % 0.4 %; Immature Granulocytes Absolute 0.04 #; Lymphocytes # 3.1 10*3/uL (1.4-4.0); Lymphocytes % 31.3 % (21.3-54.2); Mean Corpuscular HGB Conc 28.8 GM/DL (32-36); Mean Corpuscular Volume 70.4 FL (87-102); Mean Platelet Volume 9.1 FL (9.6-12.0); Monocytes % 11.7 % (1.7-12.7); Neutrophils % 50.5 % (38.7-73.9); Platelet Count 295 T/CUMM (130-400); Red Blood Count 3.85 MC/CUMM (3.8-5.5); Red Cell Distribution Width 21.1 % (9.3-17.3)
[2020-11-03 06:10] LABS: Calcium 8.3 MG/DL (8.5-10.1); Osmolality,Calculated 276.5 MOS/KG (273-304); Potassium 4.6 MMOL/L (3.5-5.1)
[2020-11-03 06:23] LABS: Hypochromasia 2+; Microcytosis 1+; Platelet Estimate Adequate
[2020-11-03] MEDS: LEVOTHYROXINE 100 MCG TABLET PO SCH (06:53)
[2020-11-03] MEDS: FAMOTIDINE 20 MG TABLET PO SCH (08:16)
[2020-11-03] MEDS: POTASSIUM CHLORIDE 20 MEQ TABLET PO SCH (08:17)
[2020-11-03] MEDS: PREGABALIN 25 MG CAPSULE PO SCH (08:17)
[2020-11-03] MEDS: MAGNESIUM OXIDE 400 MG TABLET PO SCH (08:18)
[2020-11-03] MEDS: allopurinoL 100 MG TABLET PO SCH (08:18)
[2020-11-03] MEDS: PANTOPRAZOLE 40 MG TABLET PO SCH (08:18)
[2020-11-03] MEDS: CYANOCOBALAMIN 500 MCG TABLET PO SCH (08:18)
[2020-11-03] MEDS: CALCIUM (CARBONATE)/VITAMIN D 500 MG-200 UNIT TABLET PO SCH (08:18)
[2020-11-03] MEDS: ESTRADIOL 1 MG TABLET PO SCH (09:38)
[2020-11-03 12:22] VITALS: BP 119/82
== END 2020-11-03 12:36 | disposition home or self-care (01) | DRG 372 ==
LOC: N.ED 14:52 → N.EDINP 16:52 → SUATTDRO 16:52 → N.TELES 17:24
PROVIDERS: ADMIT Internal Medicine; ATTEND Internal Medicine

== ENCOUNTER 2020-11-11 18:30 | Observation (INO) ==
[2020-11-11] MEDS ORDERED: RIZATRIPTAN ODT 5 MG TABLET PO STA (19:15)
[2020-11-11] MEDS ORDERED: ONDANSETRON 4 MG/2 ML VIAL IV STA (19:15)
[2020-11-11 19:54] LABS: Bacteria,Urine Occasional /HPF (Few); Bilirubin,Urine Negative (Negative); Blood, Urine Negative (Negative); Glucose,Urine (UA) Negative (Negative); Hyaline Casts,Urine 5 /LPF (0-3); Ketones,Urine Negative (Negative); Mucus,Urine Occasional /LPF (Occasional); Nitrite,Urine Negative (Negative); Protein,Urine Negative; Squamous Epithelial Cell,Urine Few /HPF (0-10); Urine Appearance Slightly Hazy (Clear); Urine Color Yellow (Yellow); Urine Urobilinogen < 2.0 EU/DL (0.2-1.0)
[2020-11-11 20:05] LABS: Basophils # 0.1 10*3/uL (0.0-0.2); Basophils % 0.9 % (0.0-0.8); Eosinophils # 0.1 10*3/uL (0.0-0.87); Eosinophils % 1.2 % (0.00-10.9); Hematocrit 31.4 VOL% (35.7-47.0); Immature Granulocytes % 0.8 %; Immature Granulocytes Absolute 0.09 #; Lymphocytes # 2.5 10*3/uL (1.4-4.0); Lymphocytes % 21.3 % (21.3-54.2); Mean Corpuscular Volume 69.5 FL (87-102); Mean Platelet Volume 9.1 FL (9.6-12.0); Monocytes % 9.6 % (1.7-12.7); Neutrophils % 66.2 % (38.7-73.9); Platelet Count 476 T/CUMM (130-400); Red Blood Count 4.52 MC/CUMM (3.8-5.5); White Blood Count 11.7 T/CUMM (4-12)
[2020-11-11 20:06] LABS: Hemoglobin 9.1 GM/DL (12.0-16.0)
[2020-11-11 20:12] LABS: Alanine Aminotransferase 12 U/L (13-56); Alkaline Phosphatase 91 U/L (45-117); Aspartate Amino Transferase 15 U/L (0-37); Bilirubin,Total < 0.39 MG/DL (0.2-1.0); Blood Urea Nitrogen 15 MG/DL (7-18); Calcium 8.4 MG/DL (8.5-10.1); Carbon Dioxide 23 MMOL/L (21-32); Estimated Glom Filtration Rate 47 ML/MIN; Glucose 84 MG/DL (74-106); Potassium 3.4 MMOL/L (3.5-5.1); Sodium 136 MMOL/L (136-145); Total Protein 7.2 G/DL (6.4-8.2)
[2020-11-11] MEDS ORDERED: MEPERIDINE 25 MG/1 ML VIAL IV STA (20:28)
[2020-11-11] MEDS ORDERED: ENOXAPARIN 100 MG/ML SYRINGE SUBCUT STA (20:34)
[2020-11-11] MEDS ORDERED: hydrALAZINE 20 MG/1 ML VIAL IV PRN (20:44)
[2020-11-11] MEDS ORDERED: guaiFENesin/DM ER 600-30 MG TABLET PO PRN (20:44)
[2020-11-11] MEDS ORDERED: GLUCAGON 1 MG VIAL IM PRN (20:44)
[2020-11-11] MEDS ORDERED: ONDANSETRON 4 MG/2 ML VIAL IV PRN (20:44)
[2020-11-11] MEDS ORDERED: DEXTROSE 50% 25 GM/50 ML VIAL IV PRN (20:44)
[2020-11-11] MEDS ORDERED: diphenhydrAMINE CAP 25 MG CAPSULE PO PRN (20:44)
[2020-11-11] MEDS ORDERED: NICOTINE 21 MG/24 HR PATCH TRANSDERM PRN (20:44)
[2020-11-11 21:11] LABS: Risk Ratio 2.2; VLDL CHOLESTEROL 32.4 MG/DL
[2020-11-12] MEDS ORDERED: SODIUM CHLORIDE 0.65% NASAL SPRAY 45 ML BOTTLE BOTH NARES PRN (01:16)
[2020-11-12] MEDS ORDERED: LEVOTHYROXINE 100 MCG TABLET PO SCH (06:30)
[2020-11-12] MEDS ORDERED: VANCOMYCIN 50 MG/ML 60 ML/BOTTLE PO SCH (09:00)
[2020-11-12] MEDS ORDERED: MAGNESIUM OXIDE 400 MG TABLET PO SCH (09:00)
[2020-11-12] MEDS ORDERED: CYANOCOBALAMIN 500 MCG TABLET PO SCH (09:00)
[2020-11-12] MEDS ORDERED: PREGABALIN 25 MG CAPSULE PO SCH (09:00)
[2020-11-12] MEDS ORDERED: CYCLOBENZAPRINE 10 MG TABLET PO SCH (09:00)
[2020-11-12] MEDS ORDERED: CALCIUM (CARBONATE)/VITAMIN D 500 MG-200 UNIT TABLET PO SCH (09:00)
[2020-11-12] MEDS ORDERED: DULoxetine 30 MG CAPSULE PO SCH (09:00)
[2020-11-12] MEDS ORDERED: ERGOCALCIFEROL 50,000 UNIT CAPSULE PO SCH (09:00)
[2020-11-12] MEDS ORDERED: ESTRADIOL 1 MG TABLET PO SCH (09:00)
[2020-11-12] MEDS ORDERED: METOPROLOL TARTRATE 25 MG TABLET PO SCH (09:30)
[2020-11-12] MEDS ORDERED: PANTOPRAZOLE 40 MG TABLET PO SCH (09:30)
[2020-11-12] MEDS ORDERED: ENOXAPARIN 60 MG/0.6 ML SYRINGE SUBCUT SCH (10:00)
[2020-11-12 12:06] VITALS: BP 80/55
== END 2020-11-12 13:31 | disposition home or self-care (01) ==
LOC: N.EDINP 18:30 → N.ED 18:30 → N.EDINP 22:00 → N.TELEN 22:10
PROVIDERS: ADMIT Internal Medicine; ATTEND Internal Medicine